=== PATIENT | male | born 1995 | race Caucasian/White ===

== ENCOUNTER 2017-10-11 12:32 | Emergency (ER) | payer SELFPAY ==
[~2017-10-11] VITALS: Ht 175.3 cm; Wt 85.0 kg
[2017-10-11 12:33] VITALS: BP 133/88
[2017-10-11] MEDS ORDERED: FLUO-123 PO (12:36)
[2017-10-11] MEDS ORDERED: HYDR50SY PO (12:36)
[2017-10-11] MEDS ORDERED: MIRT15TA6 PO (12:36)
== END 2017-10-11 14:48 | disposition left against medical advice (07) ==
LOC: ER 12:32
DX: F41.9 Anxiety disorder, unspecified (principal); F20.9 Schizophrenia, unspecified; F32.9 Major depressive disorder, single episode, unspecified
CPT/HCPCS: 99283